=== PATIENT | female | born 1990 | race Caucasian/White ===

== ENCOUNTER → 2016-10-04 | Outpatient (CLI) | payer OTHER ==
--- NOTE | 2016-10-04 11:46 | RADIOLOGY REPORT (SQ) ---
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 NUMBER OF VIEWS: Three views. TECHNIQUE: AP, lateral and oblique weight-bearing radiographic images acquired of the left foot. LIMITATIONS: None. FINDINGS: MINERALIZATION: Normal. BONES: No acute fracture or dislocation. No worrisome bone lesions. JOINTS: No effusions. SOFT TISSUES: No soft tissue swelling. No foreign body. OTHER: No other significant finding. IMPRESSION: NEGATIVE STUDY OF THE LEFT FOOT. NO RADIOGRAPHIC EVIDENCE OF ACUTE INJURY. TECHNICAL DOCUMENTATION: JOB ID: [id number] [employer]- All Rights Reserved
== END ==
LOC: OD 11:12
PROVIDERS: ATTEND Podiatrist Foot & Ankle Surgery
DX: Q66.9 Congenital deformity of feet, unspecified (principal); M20.5X2 Other deformities of toe(s) (acquired), left foot

== ENCOUNTER 2016-10-27 06:27 | Day surgery (SDC) | payer OTHER ==
[2016-10-26 11:50] LABS: ABSOLUTE BASOPHILS # (AUTO) 0.1 10^3/uL (0.0-0.2); ABSOLUTE EOSINOPHILS # (AUTO) 0.1 10^3/uL (0.0-0.6); ABSOLUTE LYMPHOCYTES (AUTO) 2.1 10^3/uL (0.5-4.7); ABSOLUTE MONOCYTES (AUTO) 0.3 10^3/uL (0.1-1.4); ABSOLUTE NEUT (AUTO) 4.8 10^3/uL (1.7-8.2); BASOPHILS % (AUTO) 0.8 % (0-2); EOSINOPHILS % (AUTO) 1.7 % (0-6); HEMATOCRIT 43.5 % (36.0-47.0); HEMOGLOBIN 14.4 g/dL (12.0-15.5); HGB HCT DIFFERENCE -0.3; MEAN CORPUSCULAR HEMOGLOBIN 29.5 pg (27.0-33.4); MEAN CORPUSCULAR HGB CONC 33.1 g/dL (32.0-36.0); MEAN CORPUSCULAR VOLUME 89 fl (80-97); MONOCYTES % (AUTO) 4.6 % (3-13); RED BLOOD COUNT 4.88 10^6/uL (3.72-5.28); RED CELL DISTRIBUTION WIDTH 12.6 % (11.5-14.0); SEGMENTED NEUTROPHILS % (AUTO) 64.9 % (42-78); WHITE BLOOD COUNT 7.4 10^3/uL (4.0-10.5)
[2016-10-26 12:08] LABS: APPEARANCE,URINE CLEAR; BILIRUBIN,URINE NEGATIVE (NEGATIVE); GLUCOSE, URINE NEGATIVE (NEGATIVE); KETONES,URINE NEGATIVE (NEGATIVE); LEUKOCYTE ESTERASE,URINE NEGATIVE (NEGATIVE); NITRITE,URINE NEGATIVE (NEGATIVE); PROTEIN,URINE NEGATIVE (NEGATIVE); URINE SPECIFIC GRAVITY 1.002; UROBILINOGEN,URINE NEGATIVE mg/dL (<2.0)
[~2016-10-27 06:27] MED LIST: RINGERS SOLUTION,LACTATED 1,000 ML IV PRN
[2016-10-27] MEDS ORDERED: PROPOFOL INJ 200 MG/20 ML VIAL IV ONE ×2 (07:12→09:38)
[2016-10-27] MEDS ORDERED: MIDAZOLAM 2 MG/2 ML INJ ONE (07:12)
[2016-10-27] MEDS ORDERED: FENTANYL CITRATE INJ/PF 100 MCG/2 ML AMPUL ONE (07:12)
[2016-10-27] MEDS ORDERED: LIDOCAINE 2% INJ (20 MG/ML) 20 ML MDV ONE (07:14)
[2016-10-27] MEDS ORDERED: BUPIVACAINE HCL 0.5 % INJ/PF 30 ML SDV ONE (07:14)
[2016-10-27] MEDS ORDERED: CEFAZOLIN 1 GM/D5W RTU 1 GM/50 ML RTUPB IV ONE (07:20)
[2016-10-27] MEDS ORDERED: CEFAZOLIN 1 GM/D5W RTU 1 GM/50 ML RTUPB IV PRN (07:36)
[2016-10-27] MEDS ORDERED: MORPHINE SULFATE 10 MG/ML INJ ONE (09:47)
--- NOTE | 2016-10-27 11:04 | SURGICARE OPERATIVE REPORT E ---
[facility] Oper[facility] Report NAME: JUAN CALDERÓN AGE: 26Y DATE OF SURGERY: 10/27/2016 ROOM: PREOPERATIVE DIAGNOSIS: Severe Tailor bunion, left foot. POSTOPERATIVE DIAGNOSIS: Severe Tailor bunion, left foot. PROCEDURE PERFORMED: Closing wedge osteotomy, fifth metatarsal, left foot, with internal fixation. SURGEON: CHANNING JANE D.P.M. ANESTHESIA: Local. FINDINGS: Intraoperative findings indicated severe lateral deviation of the fifth metatarsal which has created a severe varus rotation of the fifth toe and the formation also of a very painful hyperkeratoma on the plantar aspect of the fifth metatarsophalangeal joint. Conservative treatments have failed and the patient requested the surgical correction now. Intraoperative findings were confirmed clinically and radiographically. PROCEDURE: With the patient laying in a dorsal recumbent position, the left foot and leg were prepped and draped in the usual standard sterile orthopedic manner after the local anesthesia was administered which was a total ankle block. After the anesthetic effect was accomplished the left leg was elevated for approximately 2 minutes of time and the left ankle pneumatic tourniquet was inflated up to 250 mmHg after the blood was exsanguinated from the left foot. The left leg was brought to the level of the table. Attention was directed right over the fifth metatarsal. A curvilinear incision was placed right over the fifth metatarsal. The initial incision was deepened. The superficial and deep subcutaneous tissues were dissected via blunt and sharp dissection. This dissection was carried until the periosteal structures were brought into the surgical field. By this time all bleeders were ligated and all vital structures were identified and protected from surgical trauma. At this point the periosteum was reflected off bone and the osteotomy to be performed was mapped on the bone. This was a wedge type of osteotomy performed from dorsal to plantar direction. The longer arm on the wedge was more lateral and the shorter arm of the wedge was more medially positioned. The apical portion of the wedge was on the lateral proximal corner of the fifth metatarsal. At this point the osteotomy was performed and a triangular wedge of bone was removed. The angulation of the closing wedge was sufficient to derotate the fifth metatarsal in more normal anatomical alignment. Next the osteotomy was closed and fixated with a bone clamp. Intraoperative x-rays were obtained to assure the proper alignment of the fifth metatarsal and it was extremely satisfactory. On evaluating the closing wedge osteotomy, the decision was made to fixate it with 1 screw. First a K wire was drilled through the osteotomy which was used for the direction of the placement of the screw. Next, a 2.1-mm drill bit was placed right over the wire and the bed of the screw was created. After that a measurement was obtained and a 3-mm screw was to be utilized which was the proper length of the screw. The diameter of the screw was 10 mm. Finally, the countersink was performed with 2.8-mm countersink device and new measurement was obtained and the length of the screw remained to be 10 mm. After that the 3-mm screw with 10 mm of length was introduced into the surgical area and the screw compressed the osteotomy completely. Intraoperative x-ray was taken to visualize the positioning of the screw and the total compression across the osteotomy site. Fixation was extremely satisfactory. The K wire was removed. Final evaluation was conducted and the surgical correction was very satisfactory. At this point the left ankle pneumatic tourniquet was deflated. Circulation to the left foot returned to normal immediately as the normal digital color and temperature became apparent. The surgical area was irrigated with copious amounts of sterile saline solution. The periosteal structures were closed with 3-0 Vicryl. The subcutaneous tissues from deep to superficial were closed with 3-0 Vicryl and the skin edges were repositioned and closed with 4-0 nylon using continuous interlocked stitch. A Betadine compression dressing was applied around the left foot which was followed with an Winston bandage and a surgical shoe. The patient tolerated the surgical procedures well, left the operating room with stable vital signs and in good condition. The patient was taken to the recovery room alert, conscious, and oriented. There are no permanent disabilities anticipated at this time. This patient was discharged home with instructions for postoperative care. At home the patient was allowed to resume normal regular diet. The patient was also instructed how to take the postoperative medications and the antibiotics as well. DICTATING PHYSICIAN: CHANNING JANE D.P.M. [id number] PHY#: [id number] ID: [id number] JOB#: [id number] ACCT: [id number] cc:CHANNING JANE D.P.M. >
[2016-10-27] MEDS ORDERED: ONDANSETRON HCL INJ/PF 4 MG/2 ML SDV ONE (11:12)
[2016-10-27] MEDS ORDERED: DEXAMETHASONE SOD PHOSPHATE INJ 4 MG/1 ML VIAL ONE (11:12)
--- NOTE | 2016-10-27 11:34 | RADIOLOGY REPORT (SQ) ---
EXAM DESCRIPTION: NO CHG FLUORO; FOOT LEFT 2 VIEWS COMPLETED DATE/TIME: 10/27/2016 9:41 am REASON FOR STUDY: SURGICARE L FOOT 5TH METATRASAL OSTEOTOMY COMPARISON: 10/04/2016 FLUOROSCOPY TIME: 12 seconds 2 Images saved to PACS LIMITATIONS: None. PROCEDURE: 5th metatarsal osteotomy FINDINGS: 2 images demonstrate a clamp marking the 5th metatarsal, and in a cannulated screw is seen in the 5th metatarsal. IMPRESSION: Surgical changes. COMMENT: PQRS 6045F: Fluoroscopy time of the procedure is documented in the report. TECHNICAL DOCUMENTATION: JOB ID: [id number] [employer]- All Rights Reserved
--- NOTE | 2016-10-27 11:34 | RADIOLOGY REPORT (SQ) ---
EXAM DESCRIPTION: NO CHG FLUORO; FOOT LEFT 2 VIEWS COMPLETED DATE/TIME: 10/27/2016 9:41 am REASON FOR STUDY: SURGICARE L FOOT 5TH METATRASAL OSTEOTOMY COMPARISON: 10/04/2016 FLUOROSCOPY TIME: 12 seconds 2 Images saved to PACS LIMITATIONS: None. PROCEDURE: 5th metatarsal osteotomy FINDINGS: 2 images demonstrate a clamp marking the 5th metatarsal, and in a cannulated screw is seen in the 5th metatarsal. IMPRESSION: Surgical changes. COMMENT: PQRS 6045F: Fluoroscopy time of the procedure is documented in the report. TECHNICAL DOCUMENTATION: JOB ID: [id number] [employer]- All Rights Reserved
== END 2016-10-27 10:44 | disposition home or self-care (01) ==
LOC: SC 06:27
PROVIDERS: ATTEND Podiatrist Foot & Ankle Surgery
PROC: 0QSP04Z Reposition Left Metatarsal with Internal Fixation Device, Open Approach (ICD-10-PCS; 2016-10-27)
PROC: 0QBP0ZZ Excision of Left Metatarsal, Open Approach (ICD-10-PCS; principal; 2016-10-27 07:30)
DX: M21.622 Bunionette of left foot (principal); F17.210 Nicotine dependence, cigarettes, uncomplicated; Z88.8 Allergy status to other drugs, medicaments and biological substances; Z91.040 Latex allergy status
CPT/HCPCS: 36415; 85025; 81001; 73620; 28110; J2250; J3490; J0690; J1100; J3010; J2270; J2405; J2704; 01480

== ENCOUNTER 2018-09-30 17:11 | Outpatient (CLI) | payer OTHER ==
[2018-09-30 18:19] LABS: APPEARANCE,URINE SLIGHTLY-CLOUDY; BILIRUBIN,URINE NEGATIVE (NEGATIVE); COLOR,URINE YELLOW; GLUCOSE, URINE NEGATIVE (NEGATIVE); KETONES,URINE NEGATIVE (NEGATIVE); LEUKOCYTE ESTERASE,URINE NEGATIVE (NEGATIVE); NITRITE,URINE NEGATIVE (NEGATIVE); PROTEIN,URINE NEGATIVE (NEGATIVE); URINE SPECIFIC GRAVITY 1.005; UROBILINOGEN,URINE NEGATIVE mg/dL (<2.0)
[2018-09-30 18:23] LABS: URINE AMPHETAMINES SCREEN NEGATIVE; URINE BARBITURATES SCREEN NEGATIVE; URINE BENZODIAZEPINES SCREEN NEGATIVE; URINE COCAINE SCREEN NEGATIVE; URINE MARIJUANA (THC) SCREEN NEGATIVE; URINE METHADONE SCREEN NEGATIVE; URINE PHENCYCLIDINE SCREEN NEGATIVE
[2018-09-30 18:32] LABS: BACTERIA (WET MOUNT) 3+ BACTERIA SEEN; EPITHELIALS (WET MOUNT) 3+ EPITHELIALS SEEN; RBCS (WET MOUNT) NO RBCS SEEN; T.VAGINALIS (WET MOUNT) NO TRICHOMONAS SEEN; WBCS (WET MOUNT) NO WBCS SEEN; YEAST (WET MOUNT) NO YEAST SEEN
[2018-09-30] MEDS ORDERED: RINGERS SOLUTION,LACTATED 1,000 ML IV PRN (18:47)
[2018-09-30] MEDS ORDERED: RINGERS SOLUTION,LACTATED 1,000 ML IV ONE (18:47)
--- NOTE | 2018-09-30 19:10 | RADIOLOGY REPORT (SQ) ---
EXAM DESCRIPTION: U/S OB LIMITED COMPLETED DATE/TIME: 09/30/2018 6:37 pm REASON FOR STUDY: cervix length, vaginal spotting, FWB 28 weeks 4 days by dates. COMPARISON: None. TECHNIQUE: Limited transabdominal grayscale ultrasound for evaluation of specific requested obstetri tanja parameters. LIMITATIONS: None. FINDINGS: CERVICAL LENGTH: 3.1 cm. Closed. ADEBAYO: 21 cm. FHR: 132 beats per minute. PRESENTATION: Vertex PLACENTA: Posterior ANATOMY: Not assessed OTHER: No other significant findings. IMPRESSION: LIMITED OBSTETRICAL ULTRASOUND WITH MEASURED PARAMETERS DELINEATED ABOVE. Trimester of : 29 weeks 6 days TECHNICAL DOCUMENTATION: JOB ID: [id number] [employer]- All Rights Reserved Reading location - IP/workstation name: [email or web address]
[2018-09-30 20:06] LABS: CHLAM PCR NOT DETECTED (NOT DETECT); GON PCR NOT DETECTED (NOT DETECT)
== END 2018-09-30 20:25 | disposition home or self-care (01) ==
LOC: LC 17:11
PROVIDERS: ATTEND Student in an Organized Health Care Education/Training Program
PROC: 4A1HXCZ Monitoring of Products of Conception, Cardiac Rate, External Approach (ICD-10-PCS; principal; 2018-09-30)
DX: O26.853 Spotting complicating pregnancy, third trimester (principal); Z3A.28 28 weeks gestation of pregnancy
CPT/HCPCS: 76815; 80307; 81001; 87210; 87491; 87591

== ENCOUNTER 2018-11-20 08:30 | Outpatient (CLI) | payer OTHER ==
[2018-11-20 09:36] LABS: APPEARANCE,URINE SLIGHTLY-CLOUDY; BILIRUBIN,URINE NEGATIVE (NEGATIVE); COLOR,URINE YELLOW; GLUCOSE, URINE NEGATIVE (NEGATIVE); KETONES,URINE NEGATIVE (NEGATIVE); LEUKOCYTE ESTERASE,URINE NEGATIVE (NEGATIVE); NITRITE,URINE NEGATIVE (NEGATIVE); PROTEIN,URINE NEGATIVE (NEGATIVE); URINE SPECIFIC GRAVITY 1.006; UROBILINOGEN,URINE NEGATIVE mg/dL (<2.0)
--- NOTE | 2018-11-20 09:53 | Non Stress Test Report ---
Non Stress Test Datetime Report Generated by CPN: 11/20/2018 09:53 DEMOGRAPHIC EGA NST: 35.6 INDICATION Indication for Study: Other Indication for Study (NST) Other: LABOR CHECK MONITORING Monitor Explained: Monitor Explained; Test Explained; Patient Verbalized Understanding Time on Monitor: 11/20/2018 08:47 NST INTERVENTIONS NST Interventions: PO Hydration; Reposition Patient Physician Notified NST: DrOlayinka HarmanVan BABY A: [id number] BABY A Movement : Present Contraction Frequency : none FHR Baseline : 145 Accelerations : 15X15 Decelerations : None Variability : Moderate 6-25bpm NST Review: Meets Criteria for Reactive NST NST Review and Verified By : Walter VASQUEST Results: Reactive NST REPORT Report Trigger: Send Report
[2018-11-20 10:02] LABS: URINE AMPHETAMINES SCREEN NEGATIVE; URINE BARBITURATES SCREEN NEGATIVE; URINE BENZODIAZEPINES SCREEN NEGATIVE; URINE COCAINE SCREEN NEGATIVE; URINE MARIJUANA (THC) SCREEN NEGATIVE; URINE METHADONE SCREEN NEGATIVE; URINE PHENCYCLIDINE SCREEN NEGATIVE
== END 2018-11-20 09:54 | disposition home or self-care (01) ==
LOC: LC 08:30
PROVIDERS: ATTEND Student in an Organized Health Care Education/Training Program
PROC: 4A1HXCZ Monitoring of Products of Conception, Cardiac Rate, External Approach (ICD-10-PCS; principal; 2018-11-20)
DX: Z36.89 Encounter for other specified antenatal screening (principal); Z3A.35 35 weeks gestation of pregnancy
CPT/HCPCS: 59025; 80307; 81001; 84112

== ENCOUNTER 2018-11-30 09:29 | Outpatient (CLI) | payer OTHER ==
--- NOTE | 2018-11-30 09:31 | Non Stress Test Report ---
Non Stress Test Datetime Report Generated by CPN: 11/30/2018 09:31 DEMOGRAPHIC EGA NST: 36.5 INDICATION Indication for Study: Ordered by Provider VITAL SIGNS Temperature - NST: 98.0 MONITORING Monitor Explained: Monitor Explained; Test Explained; Patient Verbalized Understanding Time on Monitor: 11/26/2018 09:08 Time off Monitor: 11/26/2018 09:39 NST Duration: 31 NST INTERVENTIONS NST Interventions: PO Hydration Physician Notified NST: Dr. Thomas BABY A: [id number] BABY A Movement : Present Contraction Frequency : none FHR Baseline : 135 Accelerations : 15X15 Decelerations : Variable Variability : Moderate 6-25bpm NST Review: Meets Criteria for Reactive NST NST Review and Verified By : Yuli White RNC NST Results: Reactive NST REPORT Report Trigger: Send Report
[2018-11-30 10:39] LABS: APPEARANCE,URINE CLEAR; BILIRUBIN,URINE NEGATIVE (NEGATIVE); COLOR,URINE YELLOW; GLUCOSE, URINE NEGATIVE (NEGATIVE); KETONES,URINE NEGATIVE (NEGATIVE); LEUKOCYTE ESTERASE,URINE NEGATIVE (NEGATIVE); NITRITE,URINE NEGATIVE (NEGATIVE); PROTEIN,URINE NEGATIVE (NEGATIVE); URINE SPECIFIC GRAVITY 1.005; UROBILINOGEN,URINE NEGATIVE mg/dL (<2.0)
[2018-11-30 10:58] LABS: URINE AMPHETAMINES SCREEN NEGATIVE; URINE BARBITURATES SCREEN NEGATIVE; URINE BENZODIAZEPINES SCREEN NEGATIVE; URINE MARIJUANA (THC) SCREEN NEGATIVE; URINE METHADONE SCREEN NEGATIVE; URINE PHENCYCLIDINE SCREEN NEGATIVE
[2018-11-30 10:59] LABS: URINE COCAINE SCREEN NEGATIVE
--- NOTE | 2018-11-30 11:02 | Non Stress Test Report ---
Non Stress Test Datetime Report Generated by CPN: 11/30/2018 11:02 EGA NST: 37.2 Indication for Study: Ordered by Provider Temperature - NST: 98.0 Monitor Explained: Monitor Explained; Test Explained; Patient Verbalized Understanding Time on Monitor: 11/30/2018 09:39 Time off Monitor: 11/30/2018 10:18 NST Duration: 39 NST Interventions: PO Hydration; Reposition Patient Physician Notified NST: Dr. Guzman Movement : Present Contraction Frequency : irregular FHR Baseline : 125 Accelerations : 15X15 Decelerations : None Variability : Moderate 6-25bpm NST Review: Meets Criteria for Reactive NST NST Review and Verified By : Tai Guerra RN NST Results: Reactive Report Trigger: Send Report
== END 2018-11-30 11:31 | disposition home or self-care (01) ==
LOC: LC 09:29
PROVIDERS: ATTEND Obstetrics & Gynecology
PROC: 4A1HXCZ Monitoring of Products of Conception, Cardiac Rate, External Approach (ICD-10-PCS; principal; 2018-11-30)
DX: O26.893 Other specified pregnancy related conditions, third trimester (principal); Z3A.37 37 weeks gestation of pregnancy
CPT/HCPCS: 59025; 80307; 81005

== ENCOUNTER 2018-12-10 14:25 | Inpatient (IN) | payer OTHER ==
[2018-12-10] MEDS ORDERED: RINGERS SOLUTION,LACTATED 1,000 ML IV PRN (15:15)
[2018-12-10 15:20] LABS: APPEARANCE,URINE CLEAR; BILIRUBIN,URINE NEGATIVE (NEGATIVE); COLOR,URINE YELLOW; GLUCOSE, URINE NEGATIVE (NEGATIVE); KETONES,URINE TRACE mg/dL (NEGATIVE); LEUKOCYTE ESTERASE,URINE NEGATIVE (NEGATIVE); NITRITE,URINE NEGATIVE (NEGATIVE); PROTEIN,URINE NEGATIVE (NEGATIVE); URINE SPECIFIC GRAVITY 1.006; UROBILINOGEN,URINE NEGATIVE mg/dL (<2.0)
[2018-12-10 15:47] LABS: URINE AMPHETAMINES SCREEN NEGATIVE; URINE BARBITURATES SCREEN NEGATIVE; URINE BENZODIAZEPINES SCREEN NEGATIVE; URINE COCAINE SCREEN NEGATIVE; URINE MARIJUANA (THC) SCREEN NEGATIVE; URINE METHADONE SCREEN NEGATIVE; URINE PHENCYCLIDINE SCREEN NEGATIVE
--- NOTE | 2018-12-10 15:51 | Admission Physical ---
Datetime Report Generated by CPN: 12/10/2018 15:51 CURRENT ADMISSION Hx Assessment: The History has been Reviewed and is Current Chief Complaint: Uterine Contractions; Suspected Ruptured Membranes Indication for Induction: Not Applicable Admit Impression : Term, Intrauterine ; Active Labor; Ruptured Membranes Admit Plan: Admit to Unit; Initiate Labor Protocol ALLERGIES Medication Allergies: Yes Medication Allergies: clonazepam/Rash (11/30/2018); latex/Rash (11/30/2018) Latex: Latex Allergies OBSTETRICAL HISTORY EDC: 12/19/2018 00:00 : 7 Para: 3 Term: 3 : 0 SAB: 3 IAB: 0 Ectopic: 0 Livin Cesareans: 0 VBACs: 0 Multiple Births: 0 Gestational Diabetes: No Rh Sensitization: No Incompetent Cervix: No RYAN: No Infertility: No ART Treatment: No Uterine Anomaly: No IUGR: No Hx Previous C/S: No Macrosomia: No Hx Loss/Stillborn: No PIH: No Hx : No Placenta Previa/Abruption: No Depression/PP Depression: No PTL/PROM: No Post Hemorrhage: No Current Procedures: Ultrasound; NST Obstetrical History Comments: G1- 2007, , 40 weeks G2- 2009, , 37 weeks G3- 2014, SAB G4- 2014, , 37 weeks G5- 2017, SAB G6- 2017, [facility] G7- Current SEE RECORDS Alcohol: No Marijuana : No Cocaine: No Other Illicit Drugs: No Cigarettes: Never Smoker. 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 Surgery: No Heart Disease: No Hosp/Surgery: No Autoimmune Disorder: No Anesthetic Complications: No Kidney Disease: No Abnormal Pap Smear: No Neuro/Epilepsy: No Psychiatric Disorders: No Other Medical Diseases: No Hepatitis/Liver Disease: No Significant Family History: No Varicosities/Phlebitis: No Trauma/Violence : No Thyroid Dysfunction: No INFECTIOUS HISTORY Gonorrhea: No Genital Herpes: No Chlamydia: No Tuberculosis: No Syphilis: No Hepatitis: No HIV/AIDS Exposure: No Rash or Viral Illness: No HPV: No PHYSICAL EXAM General: Normal HEENT: Normal Neurologic: Normal Thyroid: Deferred Heart: Normal Lungs: Normal Breast: Deferred Back: Normal Abdomen: Normal Genitourinary Exam: Normal Extremities: Normal DTRs: Normal Pelvic Type: Adequate Physical Exam Comments: [id number] Hx PP HTN, admitted to [facility] 1 month PP, 2014 Pelvis proven 8-4 Oral progesterone until 16 weeks Smoker , SAB x 3 GBS neg Vital Signs: Reviewed FETUS A EGA: 38.5 Monitoring: External US Variability: Moderate 6-25bpm Accelerations: 15X15 Decelerations: None Admit Comment: Admitted to with gross rupture of membranes and labor, Cat 1 strip, GBS neg, talking thru uc's, hsb at Admit in labor, 38 weeks PLANS FOR LABOR AND DELIVERY Labor and Delivery: None Pain Management: None Feeding Preference: Breast Benefit of Breast Feed Discussed: Yes INFORMED CONSENT Assignment: Julio Beltran MD Signature: with User ID: Maile : with User ID: Maile
[2018-12-10 16:59] LABS: ABSOLUTE BASOPHILS # (AUTO) 0.1 10^3/uL (0.0-0.2); ABSOLUTE EOSINOPHILS # (AUTO) 0.1 10^3/uL (0.0-0.6); ABSOLUTE MONOCYTES (AUTO) 0.6 10^3/uL (0.1-1.4); ABSOLUTE NEUT (AUTO) 7.6 10^3/uL (1.7-8.2); BASOPHILS % (AUTO) 0.6 % (0-2); EOSINOPHILS % (AUTO) 1.2 % (0-6); HEMATOCRIT 30.4 % (36.0-47.0); HEMOGLOBIN 9.9 g/dL (12.0-15.5); LYMPHOCYTES % (AUTO) 19.2 % (13-45); MEAN CORPUSCULAR HEMOGLOBIN 24.2 pg (27.0-33.4); MEAN CORPUSCULAR HGB CONC 32.7 g/dL (32.0-36.0); MEAN CORPUSCULAR VOLUME 74 fl (80-97); MONOCYTES % (AUTO) 5.5 % (3-13); PLATELET COUNT 415 10^3/uL (150-450); RED BLOOD COUNT 4.11 10^6/uL (3.72-5.28); RED CELL DISTRIBUTION WIDTH 15.2 % (11.5-14.0); SEGMENTED NEUTROPHILS % (AUTO) 73.5 % (42-78); TOTAL CELLS COUNTED % (AUTO) 100 %; WHITE BLOOD COUNT 10.3 10^3/uL (4.0-10.5)
[2018-12-10] MEDS ORDERED: MISOPROSTOL 0.2 MG TABLET ONE (19:20)
[2018-12-10] MEDS ORDERED: OXYTOCIN 10 UNIT/ML VIAL ONE (19:20)
[2018-12-10] MEDS ORDERED: OXYTOCIN/NORMAL SALINE 20 UNIT/1,000 ML RTUINJ ONE (19:21)
[2018-12-10] MEDS ORDERED: LIDOCAINE 1% INJ-PF (10 MG/ML) 30 ML SDV ONE (19:21)
[2018-12-10] MEDS ORDERED: OXYTOCIN/NORMAL SALINE 20 UNIT/1,000 ML RTUINJ IV PRN ×2 (20:33→22:47)
[2018-12-10] MEDS ORDERED: NALBUPHINE HCL INJ 10 MG/1 ML AMPULE ONE (22:35)
[2018-12-10] MEDS ORDERED: BENZOCAINE/MENTHOL AEROSOL SPRAY 56 ML TOP PRN (22:47)
[2018-12-10] MEDS ORDERED: PSEUDOEPHEDRINE HCL 30 MG TABLET PO PRN (22:47)
[2018-12-10] MEDS ORDERED: PROMETHAZINE HCL INJ 25 MG/1 ML VIAL IV PRN (22:47)
[2018-12-10] MEDS ORDERED: DIPHENHYDRAMINE HCL 25 MG CAPSULE PO PRN (22:47)
[2018-12-10] MEDS ORDERED: MAGNESIUM HYDROXIDE SUSP 30 ML UDCUP PO PRN (22:47)
[2018-12-10] MEDS ORDERED: PROMETHAZINE HCL 25 MG TABLET PO PRN (22:47)
[2018-12-10] MEDS ORDERED: PROMETHAZINE HCL 25 MG SUPP.RECT PR PRN (22:47)
[2018-12-10] MEDS ORDERED: MEASLES,MUMPS&RUBELLA VACC/PF 0.5 ML VIAL SUBCUT PRN (22:47)
[2018-12-10] MEDS ORDERED: DIPH/PERTUSS(ACELL)/TETANUS VAC/PF 0.5 ML SYR (>=10YO) IM PRN (22:47)
[2018-12-10] MEDS ORDERED: ZOLPIDEM TARTRATE 5 MG TABLET PO PRN (22:47)
[2018-12-10] MEDS ORDERED: NA PHOS,M-B/NA PHOS,DI-BA (ADULT) 133 ML ENEMA PR PRN (22:47)
[2018-12-10] MEDS ORDERED: GLYCERIN/WITCH HAZEL LEAF 1 EACH MED..WIPE TP PRN (22:47)
[2018-12-10] MEDS ORDERED: DIBUCAINE 1% OINTMENT 56 GM TP PRN (22:47)
[2018-12-10] MEDS ORDERED: ACETAMINOPHEN 650 MG SUPP.RECT PR PRN (22:47)
[2018-12-10] MEDS ORDERED: ACETAMINOPHEN WITH CODEINE #3 TABLET PO PRN ×2 (22:47)
[2018-12-10] MEDS ORDERED: NALBUPHINE HCL INJ 10 MG/1 ML AMPULE INJ ONE (23:00)
--- NOTE | 2018-12-11 01:04 | Warning Signs in Babies ---
VOD Warning Signs Datetime Report Generated by [facility]: 12/11/2018 01:04 VOD#608 -Warning Signs in Babies: Needs to be viewed. (09/30/2018 17:26:Puja Larry RN)
[2018-12-11] MEDS: FAMOTIDINE 20 MG TABLET PO SCH ×3 (03:35→22:00)
[2018-12-11] MEDS: IBUPROFEN 800 MG TABLET PO SCH ×3 (05:16→22:00)
[2018-12-11 07:26] LABS: HEMATOCRIT 28.6 % (36.0-47.0); HEMOGLOBIN 9.2 g/dL (12.0-15.5); MEAN CORPUSCULAR HEMOGLOBIN 23.8 pg (27.0-33.4); MEAN CORPUSCULAR VOLUME 74 fl (80-97); PLATELET COUNT 385 10^3/uL (150-450); RED BLOOD COUNT 3.86 10^6/uL (3.72-5.28); RED CELL DISTRIBUTION WIDTH 15.2 % (11.5-14.0); WHITE BLOOD COUNT 15.4 10^3/uL (4.0-10.5)
--- NOTE | 2018-12-11 08:42 | Delivery Summary ---
Del Sum A-C Datetime Report Generated by CPN: 12/11/2018 08:41 DELIVERY PERSONNEL DELIVERY PERSONNEL: [id number] Delivery Doctor:: Julio Beltran MD Labor and Delivery Nurse:: Puja Larry RN Labor and Delivery Nurse:: Peggy Johnson RN Vfx Artist/SUPERVISOR PRINT LINE: Ally Tripp, [employer]OMOBI[employer] WRECK[employer] MATERNAL INFORMATION Delivery Anesthesia: None Medications After Delivery: Pitocin Drip 20 Units/1000ml NSS Delivery QBL: 200 Maternal Complications: Precipitous Labor (<3hrs) LABOR SUMMARY EDC: 12/19/2018 00:00 No. Babies in Womb: 1 Labor Anesthesia: None LABOR INFORMATION Reason for Induction: Not Applicable Onset of Labor: 12/10/2018 20:24 Complete Dilatation: 12/10/2018 23:04 Oxytocin: Augmentation Group B Beta Strep: neg Antibiotics # of Doses: 0 Steroids Given: None Reason Steroids Not Administered: Not Applicable MEMBRANES Membranes Rupture Method: Spontaneous Rupture of Membranes: 12/10/2018 10:00 Length of Rupture (hr): 13.53 Amniotic Fluid Color: Clear Amniotic Fluid Amount: None Amniotic Fluid Odor: Normal STAGES OF LABOR Stage 1 hr: 2 Stage 1 min: 40 Stage 2 hr: 0 Stage 2 min: 28 Stage 3 hr: 0 Stage 3 min: 6 Total Time in Labor hr: 3 Total Time in Labor min: 14 VAGINAL DELIVERY Episiotomy: None Laceration #1: Periurethral Laceration Extension #1: N/A Laceration #2: None Laceration Extension #2: N/A Laceration #3: None Laceration Extension #3: N/A Laceration Repair: Yes Laceration Repair Note: small left periurethral laceration repaired with one 3-0 chromic suture Sponge Count Correct: Vaginal Sweep Performed Sharps Count Correct: Yes BABY A INFORMATION Delivery Date/Time: 12/10/2018 23:32 Method of Delivery: Vaginal Born in Route : No : N/A Forceps: N/A Vacuum Extraction: N/A Shoulder Dystocia : No PRESENTATION/POSITION BABY A Presentation: Cephalic Cephalic Presentation: Vertex Vertex Position: Left Occipital Anterior Breech Presentation: N/A PLACENTA INFORMATION BABY A Placenta Delivery Time : 12/10/2018 23:38 Placenta Method of Delivery: Spontaneous Placenta Status: Delivered SCORES BABY A Heart Rate 1 min: >100 bpm Resp Effort 1 min: Good Cry Reflex Irritability 1 min: Cough or Sneeze or Pulls Away Muscle Tone 1 min: Active Motion Color 1 min: Blue/Pale Resuscitation Effort 1 min: Tactile Stimulation SCORE 1 MIN: 8 Heart Rate 5 min: >100 bpm Resp Effort 5 min: Good Cry Reflex Irritability 5 min: Cough or Sneeze or Pulls Away Muscle Tone 5 min: Active Motion Color 5 min: Body [place], Extremities Blue Resuscitation Effort 5 min: Tactile Stimulation SCORE 5 MIN: 9 INFORMATION BABY A Gestational Age at Delivery: 38.5 Gestational Status: Early Term- 37- 38.6 Weeks Infant Outcome : Liveborn Condition : Stable Infant Sex: Male IDENTIFICATION BABY A Verification Date/Time: 12/10/2018 23:50 ID Band Number: [id number] Mother's Name Verified: Yes Infant RN Verifying Infant: Chalman, A. RN Additional Verifying Personnel: Giancarlo, C. RN WEIGHT/LENGTH BABY A Infant Birthweight (gm): 3484 Weight (lb): 7 Infant Weight (oz): 11 Infant Length (in): 20.00 Infant Length (cm): 50.80 CORD INFORMATION BABY A No. Cord Vessels: 3 Nuchal Cord : N/A Cord Blood Taken: Yes-For Storage (Mom's Blood type +) Infant Suction: Mouth; Nose ASSESSMENT BABY A Complications: None Physical Findings at Delivery: Within Normal Limits Skin to Skin: Yes Transferred To: Remains with Mother SIGNATURES Signature: with User ID: [email or web address]
[2018-12-11] MEDS: PRENATAL VITAMIN W DHA CAPSULE PO SCH (09:54)
[2018-12-11] MEDS: DOCUSATE SODIUM 100 MG CAPSULE PO SCH ×2 (09:54→17:47)
[2018-12-11] MEDS: SENNOSIDES/DOCUSATE 8.6-50 MG 1 EACH TABLET PO SCH (09:54)
[2018-12-11] MEDS: FERROUS SULFATE 325 MG TABLET PO SCH ×2 (09:54→17:47)
--- NOTE | 2018-12-11 16:55 | PDOC PROGRESS REPORT ---
Subjective-OB Progress Note for:: 12/11/18 Subjective: Pt doing well, resting. She reports light bleeding, regular diet and voiding without difficulty. Physical Exam (OB) Vital Signs: Temp Pulse Resp BP Pulse Ox 97.8 F 80 20 101/56 L 100 12/11/18 08:19 12/11/18 08:19 12/11/18 08:19 12/11/18 08:19 12/11/18 08:19 Intake & Output 12/10/18 12/11/18 12/12/18 06:59 06:59 06:59 Weight 72.6 kg - PIH/Pre-Eclampsia Clonus: Negative Headache: Absent Epigastric Pain: No Visual Changes: No - Lochia Lochia Amount: Scant < 10 ml Lochia Color: Rubra/Red - Abdomen Description: Soft, Round Hernia Present: No Fundal Description: Firm, Midline Fundal Height: u/u - u/2 Objective-Diagnostic Laboratory: 12/11/18 06:23 12/10/18 12/10/18 12/11/18 16:40 16:40 06:23 WBC 10.3 15.4 H RBC 4.11 3.86 Hgb 9.9 L 9.2 L Hct 30.4 L 28.6 L MCV 74 L 74 L MCH 24.2 L 23.8 L MCHC 32.7 32.0 RDW 15.2 H 15.2 H Plt Count 415 385 Seg Neutrophils % 73.5 Lymphocytes % 19.2 Monocytes % 5.5 Eosinophils % 1.2 Basophils % 0.6 Absolute Neutrophils 7.6 Absolute Lymphocytes 2.0 Absolute Monocytes 0.6 Absolute Eosinophils 0.1 Absolute Basophils 0.1 Blood Type A POSITIVE Antibody Screen NEGATIVE Assessment and Plan(PN) - Assessment and Plan (1) Delivery normal Is this a current diagnosis for this admission?: Yes - Time Spent with Patient Time with patient: Less than 15 minutes Medications reviewed and adjusted accordingly: Yes - Disposition Anticipated Discharge: Home Within: within 24 hours
[2018-12-12] MEDS: IBUPROFEN 800 MG TABLET PO SCH (06:35)
[2018-12-12 09:27] VITALS: BP 105/57
[2018-12-12] MEDS: SENNOSIDES/DOCUSATE 8.6-50 MG 1 EACH TABLET PO SCH (09:33)
[2018-12-12] MEDS: PRENATAL VITAMIN W DHA CAPSULE PO SCH (09:33)
[2018-12-12] MEDS: FERROUS SULFATE 325 MG TABLET PO SCH (09:33)
[2018-12-12] MEDS: DOCUSATE SODIUM 100 MG CAPSULE PO SCH (09:33)
[2018-12-12] MEDS: FAMOTIDINE 20 MG TABLET PO SCH (09:33)
--- NOTE | 2018-12-12 09:40 | PDOC PROGRESS REPORT ---
Subjective-OB Progress Note for:: 12/12/18 Subjective: Ready for discharge. Physical Exam (OB) Vital Signs: Temp Pulse Resp BP Pulse Ox 98 F 82 12 105/57 L 97 12/12/18 09:28 12/12/18 09:28 12/12/18 09:28 12/12/18 07:47 12/12/18 09:28 Intake & Output 12/11/18 12/12/18 12/13/18 06:59 06:59 06:59 Weight 72.6 kg - PIH/Pre-Eclampsia Clonus: Negative Headache: Absent Epigastric Pain: No Visual Changes: No - Lochia Lochia Amount: Scant < 10 ml Lochia Color: Rubra/Red - Abdomen Description: Soft, Round Hernia Present: No Bowel Sounds: Normoactive Flatus Presence: Present Stool: Yes Fundal Description: Firm, Midline Fundal Height: u/u - u/2 Objective-Diagnostic Laboratory: 12/11/18 06:23 Assessment and Plan(PN) - Time Spent with Patient Medications reviewed and adjusted accordingly: Yes - Disposition Anticipated Discharge: Home
--- NOTE | 2018-12-12 09:47 | PDOC DISCHARGE SUMMARY ---
Final Diagnosis Discharge Date: 12/12/18 - Final Diagnosis (1) Anemia Is this a current diagnosis for this admission?: Yes (2) Delivery normal Is this a current diagnosis for this admission?: Yes (3) Is this a current diagnosis for this admission?: Yes Discharge Data - Discharge Medication Prescriptions: Ferrous Sulfate [Feosol 325 mg Tablet] 325 mg PO BID #60 tablet Home Medications: No122/Iron/Folic Acid [ Multi Tablet] 1 tab PO DAILY 09/30/18 Ferrous Sulfate [Feosol 325 mg Tablet] 325 mg PO BID #60 tablet 12/12/18 Gestational Age: 38.5 wks Reason(s) for Admission: Onset of Labor Procedures: Ultrasound Intrapartum Procedure(s): Spontaneous Vaginal Delivery Complication(s): Laceration-Periurethral Laceration-Degree: 1st - Data Baby 1 Male at 1 minute: 8 at 5 minutes: 9 Weight: 3.487 kg Home with Mother: Yes Complications: No - Diagnosis Test Laboratory: Temp Pulse Resp BP Pulse Ox 98 F 82 12 105/57 L 97 12/12/18 09:28 12/12/18 09:28 12/12/18 09:28 12/12/18 07:47 12/12/18 09:28 12/10/18 12/10/18 12/11/18 15:04 16:40 06:23 RBC 4.11 3.86 Hgb 9.9 L 9.2 L Hct 30.4 L 28.6 L Urine Opiates Screen NEGATIVE - Discharge information/Instructions Discharge Activity: Activity As Tolerated, Balance Activity w/Rest, Pelvic Rest, Slowly Increase Activity, No tub bath Discharge Diet: Regular Disposition: HOME, SELF-CARE Follow up with: [facility] in: 4, Weeks
== END 2018-12-12 13:33 | disposition home or self-care (01) | DRG 807 ==
LOC: LC 14:25 → LR 15:11 → 2S 12-11 02:31
PROVIDERS: ADMIT Obstetrics & Gynecology; ATTEND Obstetrics & Gynecology
PROC: 10E0XZZ Delivery of Products of Conception, External Approach (ICD-10-PCS; principal; 2018-12-10)
PROC: 0UQMXZZ Repair Vulva, External Approach (ICD-10-PCS; 2018-12-10)
DX: O62.3 Precipitate labor (principal); Z37.0 Single live birth; O71.82 Other specified trauma to perineum and vulva; Z3A.38 38 weeks gestation of pregnancy; O99.02 Anemia complicating childbirth; D64.9 Anemia, unspecified; Z91.040 Latex allergy status
CPT/HCPCS: 36415; 80307; 81005; 84112; 85025; 85027; 86592; 86850; 86900; 86901; J2300; J2590; J3490